=== PATIENT | female | born 1990 | race Caucasian/White ===

== ENCOUNTER 2025-08-21 11:57 | Emergency (ER) | payer OTHER, SELFPAY ==
--- NOTE | ~2025-08-21 | XR_ITS ---
EXAMINATION: XR ankle LT min 3V, 08/21/2025 13:40 [facility] HISTORY: injury pain, pain on lateral side of LT ankle COMPARISON: No comparisons available. Findings: There is a small avulsion fracture of the lateral malleolus. No significant degenerative changes. Soft tissues unremarkable. Impression: Fracture detailed above Reviewed, dictated and finalized at location P. [facility] Impression: Fracture detailed above
[2025-08-21 12:08] VITALS: BP 129/64; PULSE 87; RESP 18; TEMP 36.7; O2SAT 100
--- NOTE | 2025-08-21 14:25 | ED_ITS ---
HPI - Extremity Injury (Lower) General Chief Complaint: Extremity Injury, Lower Stated Complaint: L ankle injury Time Seen by Provider: 08/21/25 13:41 History of Present Illness HPI Narrative: Patient is a 34-year-old female who presents ER with left ankle pain. Was walking the street last night when she suffered inversion injury to the ankle while stepping in a pothole. She did not strike her head or lose consciousness. No numbness or tingling to her foot. Has trouble bearing weight due to pain. There is swelling to the ankle. She is tender over lateral malleolus. Related Data Allergies Allergy/AdvReac Type Severity Reaction Status Date / Time amoxicillin Allergy Rash Verified 08/21/25 12:00 Review of Systems Constitutional: Constitutional: Reports no additional constitutional complaints Musculoskeletal: Musculoskeletal: Reports no additional musculoskeletal complaints PMFSH Past Medical History Medical History (Updated 08/21/25 @ 14:28 by Rodríguez Frey MD) Healthy female adult Exam Narrative: GENERAL: Well-appearing, well-nourished, and in no acute distress. HEAD: Normocephalic, atraumatic. ENT: Mucous membranes moist. NECK: Supple. CHEST: Clear to auscultation. No respiratory distress. HEART: Regular rate and rhythm. Normal peripheral pulses. ABDOMEN: Soft, nontender, nondistended. EXTREMITIES: Normal range of motion. No edema. SKIN: Warm, dry, no rash. NEURO: Alert and oriented x3. PSYCH: Normal mood and affect. Course Course Emergency Course: Informed of imaging results. Appropriate for discharge home. She will purchase a stirrup splint at a local pharmacy but will provide her with crutches for weight-bearing as tolerated. Vital Signs Vital signs: Vital Signs Temperature 98.0 F 08/21/25 12:08 Pulse Rate 87 08/21/25 12:08 Respiratory Rate 18 08/21/25 12:08 Blood Pressure 129/64 08/21/25 12:08 Pulse Oximetry 100 08/21/25 12:08 Oxygen Delivery Room Air 08/21/25 12:08 Temperature 98.0 F 08/21/25 12:08 Pulse Rate 87 08/21/25 12:08 Respiratory Rate 18 08/21/25 12:08 Blood Pressure 129/64 08/21/25 12:08 Pulse Oximetry 100 08/21/25 12:08 Oxygen Delivery Room Air 08/21/25 12:08 MDM - Extremity Injury (Lower) Imaging Data Attestation: I personally reviewed and interpreted this imaging study as follows: My impression: Avulsion fracture left ankle lateral malleolus Radiologist's impression: ITS Impressions Ankle X-Ray 08/21/25 14:18 Impression: Fracture detailed above Discharge Plan Discharge Clinical Impression: Ankle fracture, lateral malleolus, closed Patient Disposition: Home Condition: Stable Instructions: Ankle Fracture (ED), P.R.I.C.E. Treatment (ED) Additional Instructions: You have an avulsion fracture of the lateral malleolus left ankle. Bear weight as tolerated. Slow return to full activity. Follow-up with your PCP for further treatment. Patient Language: Faroese Prescriptions: New naproxen 375 mg tablet 375 mg PO BID Qty: 14 0RF Follow-up/Referrals: [email or web address] [Other] - 1 Week Stand Alone Forms: Work/School Release IP
== END 2025-08-21 14:50 | disposition home or self-care (01) ==
PROVIDERS: Emergency Provider Emergency Medicine
DX: S82.62XA Displaced fracture of lateral malleolus of left fibula, initial encounter for closed fracture (principal); X50.9XXA Other and unspecified overexertion or strenuous movements or postures, initial encounter
CPT/HCPCS: 73610; 99283